=== PATIENT | female | born 1980 | race Caucasian/White ===

== ENCOUNTER 2017-08-29 21:23 | Emergency (ER) | payer OTHER ==
[2017-08-29 22:58] LABS: Bilirubin Negative (Negative); Blood, Urine Negative (Negative); Glucose, Urine (Dipstick) Negative (Negative); Ketone, Urine Negative (Negative); Nitrite Negative (Negative); Protein, Urine (Dipstick) Negative (Neg-Trace); Urobilinogen 0.2 mg/dL (0.2-1.0)
[2017-08-30 00:56] LABS: #Basophils 0.1 thou/uL (0.0-0.2); #Eosinphils 0.3 thou/uL (0.0-0.7); #Lymphocytes 3.3 thou/uL (1.20-3.40); #Monocytes 0.4 thou/uL (0.11-0.59); #Neutrophils 3.3 thou/uL (1.40-6.50); %Basophils 0.9 % (0.0-1.0); %Eosinophils 3.5 % (0.0-10.0); %Lymphocytes 44.8 % (21.0-51.0); %Monocytes 6.1 % (0.0-10.0); Hematocrit 36.2 % (36.0-47.0); Mean Platelet Volume 8.4 fL (7.4-10.4); White Blood Cell (WBC) Count 7.3 thou/uL (4.8-10.8)
[2017-08-30 01:17] LABS: ALT (SGPT) 16 U/L (8-55); AST (SGOT) 22 U/L (5-34); Alkaline Phosphatase 96 U/L (40-150); Anion Gap 12 mmol/L (10-20); BUN (Urea Nitrogen) 11 mg/dL (7.0-18.7); Bilirubin, Total 0.4 mg/dL (0.2-1.2); Calc. Creatinine Clearance 0 mL/min (70-130); Carbon Dioxide 25 mmol/L (22-29); Chloride 104 mmol/L (98-107); Estimated GFR-MDRD 80; Globulin 3.1 g/dL (2.4-3.5); Lipase 28 U/L (8-78); Protein, Total 7.3 g/dL (6.0-8.3)
--- NOTE | 2017-08-30 12:02 | CT ---
PRELIMINARY REPORT/[facility]/EMERGENCY AFTER-HOURS PROCEDURE: EXAM: CT Abdomen and Pelvis Without Intravenous Contrast CLINICAL HISTORY: 37 years old, female; Pain; Abdominal pain; Flank; Left; Patient HX: 37 yo f presents to ed C/O l fl ank pain and back pain onset a couple weeks [employer], worse the past couple days. Denies pain like this i n the past, denies h/o kidney infections. Denies fever or chills. Reports nausea and diarrhea, denie s vomiting. Also reports lower abdominal cramping that started today. Lmp last year. Denies h/o pe o r dvt. No previous exams TECHNIQUE: Axial computed tomography images of the abdomen and pelvis without intravenous contrast. Coronal reformatted images were created and reviewed. COMPARISON: No relevant prior studies available. FINDINGS: Lower thorax: No acute findings. ABDOMEN: Liver: No mass. Gallbladder and bile ducts: Prior cholecystectomy. Pancreas: No ductal dilation. No mass. Spleen: No mass. Adrenals: No mass. Kidneys and ureters: No obstructing stones. No hydronephrosis. Stomach and bowel: Postsurgical changes. Fecal loading. Diverticulosis. Few fluid-filled nonspecific small bowel loops. No evidence of bowel obstruction. Appendix: No findings to suggest acute appendicitis. PELVIS: Bladder: No stones. Reproductive: No acute findings. ABDOMEN and PELVIS: Intraperitoneal space: No acute findings. No free air. No significant fluid collection. Bones/joints: No acute fracture. Soft tissues: No acute findings. Vasculature: No acute findings. No abdominal aortic aneurysm. Lymph nodes: No enlarged lymph nodes. IMPRESSION: No acute findings. Thank you for allowing us to participate in the care of your patient. Dictated and Authenticated by: London Mancia MD 08/30/2017 3:24 AM Central Time ([place] \T\ [place]) FINAL REPORT CT ABDOMEN AND PELVIS WITHOUT CONTRAST: HISTORY: Pain. COMPARISON: None. FINDINGS/IMPRESSION: Findings and impression are concordant with the preliminary report. POS: [facility]
== END 2017-08-30 03:48 | disposition home or self-care (01) ==
LOC: ERS 21:23
DX: R10.12 Left upper quadrant pain (principal); Z79.899 Other long term (current) drug therapy
CPT/HCPCS: 74176; 80053; 81003; 81025; 83690; 84702; 85025